=== PATIENT | female | born 1930 | race Caucasian/White ===

== ENCOUNTER 2018-03-14 13:45 | Inpatient (IN) | payer OTHER ==
[~2018-03-14] VITALS: Ht 157.5 cm; Wt 86.2 kg
[~2018-03-14 13:45] MED LIST: ACCUNEB0.63 MG/3 IH; ATENOLOL PO; AVALIDE 150-12.1 TA1 PO; BRONCOTRON LIQ118 ML PO; GLIMEPIRIDE1 MG PO; METFORMIN HCL500 MG PO; METFORMIN HYDRO25 GM MC; SULFAMETHOXAZO500 GM MC
[2018-03-15] MEDS ORDERED: LANTUS SOL100 UNIT/1 (15:57)
[2018-03-15] MEDS ORDERED: LANSOPRAZOLE30 MG PO (15:59)
[2018-03-15] MEDS ORDERED: LEVO-T25 MCG PO (15:59)
[2018-03-17] MEDS ORDERED: TENORMIN100 M1 PO (16:07)
[2018-03-19] MEDS ORDERED: ULTRACET PO (11:54)
[2018-03-19] MEDS ORDERED: COLACE100 MG PO (11:55)
[2018-03-19] MEDS ORDERED: TANDEM PLUS CA1 EACH PO (11:55)
[2018-03-19] MEDS ORDERED: TYLENOL325 MG PO (11:58)
== END 2018-03-19 13:48 | disposition home or self-care (01) | DRG 735 ==
LOC: O/R 03-17 06:10 → OB/GYN 03-17 06:10
PROVIDERS: Obstetrics & Gynecology Gynecologic Oncology
PROC: 0UT94ZZ Resection of Uterus, Percutaneous Endoscopic Approach (ICD-10-PCS; 2018-03-17)
PROC: 0UT24ZZ Resection of Bilateral Ovaries, Percutaneous Endoscopic Approach (ICD-10-PCS; 2018-03-17)
PROC: 0UT74ZZ Resection of Bilateral Fallopian Tubes, Percutaneous Endoscopic Approach (ICD-10-PCS; 2018-03-17)
PROC: 07TC4ZZ Resection of Pelvis Lymphatic, Percutaneous Endoscopic Approach (ICD-10-PCS; principal; 2018-03-17 12:15)
PROC: 30233N1 Transfusion of Nonautologous Red Blood Cells into Peripheral Vein, Percutaneous Approach (ICD-10-PCS; 2018-03-18)
DX: C54.1 Malignant neoplasm of endometrium (principal); D50.8 Other iron deficiency anemias; E11.9 Type 2 diabetes mellitus without complications